=== PATIENT | female | born 2000 | race Two or more races ===

== ENCOUNTER 2019-03-20 19:23 | Emergency (ER) | payer OTHER, MEDICAID ==
[2019-03-20] MEDS ORDERED: hydrOXYzine HCl 50 MG/ML SDV IM ONE (19:51)
[2019-03-20] MEDS ORDERED: Ketorolac 60 MG/2 ML SDV IM ONE (19:51)
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
[2019-03-20 20:51] VITALS: BP 98/73
== END 2019-03-20 20:26 | disposition home or self-care (01) ==
LOC: FB.ED 19:23
DX: R51 Headache (principal); Z88.1 Allergy status to other antibiotic agents
CPT/HCPCS: 81025; 96372; 99284; J1885; J3410

== ENCOUNTER 2019-05-29 18:01 | Emergency (ER) | payer OTHER ==
--- NOTE | 2019-05-29 18:17 | EDM.PDOC ---
ED HPI GENERAL MEDICAL PROBLEM - General Stated Complaint: MIGRAINE Time Seen by Provider: 05/29/19 18:17 Source of Information: Reports: Patient History Limitations: Reports: No Limitations - History of Present Illness INITIAL COMMENTS - FREE TEXT/NARRATIVE: 19-year-old female who reports she's had a daily headache for the past 3 months. The headache seems to come and go. It does seem to be getting worse with time. She has been followed by Dr. Matamoros in regard to this headache and 2 days ago she had an MRI performed of her brain. She does not know the results of this test. 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 She 's had vomiting 2 over the past 2 days. The headache began at 4 PM and has worsened with time. She's had no fevers. She's been able to drink liquids well. The headache has percussively worsened with time. She rates the pain as a 7/10. The pain is a pulsating and sharp pain. There is some photophobia. She also has some neck stiffness but this is consistent with her usual headaches that she has been having. There are no other associated signs or symptoms. There are no other modifying factors. Onset: Today (4 PM, however, she has had a daily headache for the past 3 months) Duration: Getting Worse (, she reports) Location: Reports: Head Quality: Reports: Ache, Other (Pulsating) Severity: Moderate Improves with: Reports: None Worsens with: Reports: None Context: Reports: Other (As above) Associated Symptoms: Reports: Headaches, Nausea/Vomiting Treatments PARTS INTERPRETER: Reports: Other (see below) (Nothing) head Pain Score (Numeric/FACES): 7 - Related Data Allergies Allergy/AdvReac Type Severity Reaction Status Date / Time amoxicillin Allergy Hives Verified 05/29/19 18:15 latex Allergy Hives Verified 05/29/19 18:15 Home Meds: Home Meds NK [No Known Home Meds] 05/29/19 [History] Past Medical History Psychiatric History: Reports: Anxiety, Depression Social & Family History - Family History Family Medical History: Noncontributory - Tobacco Use Tobacco Use Within Last Twelve Months: Other (See Below) (Vapes) Tobacco Use Comment: The patient Vapes - Caffeine Use Caffeine Use: Reports: Energy Drinks, Soda - Alcohol Use Alcohol Use History: No - Recreational Drug Use Recreational Drug Use: No - Living Situation & Occupation Occupation: Employed (Works 2 jobs.) ED ROS GENERAL - Review of Systems Review Of Systems: See Below Constitutional: Reports: Chills (Chills every day for the past 3 months) HEENT: Reports: No Symptoms Respiratory: Reports: No Symptoms Cardiovascular: Reports: No Symptoms GI/Abdominal: Reports: Nausea, Vomiting : Reports: No Symptoms Musculoskeletal: Reports: Neck Pain (Which is a component of her headache.) Skin: Reports: No Symptoms Neurological: Reports: Headache Hematologic/Lymphatic: Reports: No Symptoms Immunologic: Reports: No Symptoms - Physical Exam Exam: See Below Exam Limited By: No Limitations General Appearance: Alert, WD/WN, Mild Distress Eye Exam: Bilateral Eye: EOMI, Normal Inspection, PERRL Ears: Normal External Exam, Hearing Grossly Normal Nose: Normal Inspection, Normal Mucosa, No Blood Throat/Mouth: Normal Inspection, Normal Oropharynx, Normal Voice, No Airway Compromise Head Exam: Atraumatic, Normocephalic Neck: Normal Inspection, Supple, Non-Tender, Full Range of Motion, Other (No meningismus) Respiratory/Chest: No Respiratory Distress Cardiovascular: Normal Peripheral Pulses, Regular Rate, Rhythm, No JVD GI/Abdominal: Normal Bowel Sounds, Soft, Non-Tender, No Mass Neuro Exam (Abbreviated): Alert, Oriented, CN II-XII Intact, Normal Cognition, No Motor/Sensory Deficits Back Exam: Normal Inspection Extremities: Normal Inspection, Normal Range of Motion, Non-Tender, No Pedal Edema, Normal Capillary Refill Skin Exam: Warm, Dry, Intact, Normal Color, No Rash Course - Vital Signs Last Recorded V/S: Last Vital Signs Temp 36.8 C 05/29/19 18:05 Pulse 88 05/29/19 18:05 Resp 15 05/29/19 18:05 BP 103/72 05/29/19 18:05 Pulse Ox 100 05/29/19 18:05 - Orders/Labs/Meds Orders: Active Orders 24 hr Category Date Time Status STREP SCRN A RAPID W CULT CONF [RM] Stat Lab 08/11/19 18:47 Received Labs: Rapid strep was negative. Meds: Medications Discontinued Medications Generic Name Dose Route Start Last Admin Trade Name Kun PRAlba Reason Stop Dose Admin Diphenhydramine HCl 25 mg 05/29/19 18:40 05/29/19 18:58 Benadryl IM 05/29/19 18:41 25 mg ONETIME ONE Administration Ketorolac Tromethamine 60 mg 05/29/19 18:40 05/29/19 19:00 Toradol IM 05/29/19 18:41 60 mg ONETIME ONE Administration Prochlorperazine Edisylate 10 mg 05/29/19 18:40 05/29/19 18:59 Compazine IM 05/29/19 18:41 10 mg ONETIME ONE Administration - Re-Assessments/Exams Free Text/Narrative Re-Assessment/Exam: 05/29/19 18:41: Patient with recurrent headaches for the past 3 months who presents with another headache beginning at 4 PM today that is typical of her previous headaches. She had an MRI performed of her brain 2 days ago and that MRI was read by the radiologist as unremarkable. I relayed these results to the patient. The patient was treated with Toradol 60 mg, Compazine 10 mg and Benadryl 25 mg IM. She did have a sore throat but the rapid strep was negative. She was given a note for no work today and she should follow-up with Dr. Matamoros as scheduled. Departure - Departure Time of Disposition: 19:00 Disposition: Home, Self-Care 01 Condition: Good (Stable) Clinical Impression: Headache syndrome Pharyngitis Qualifiers: Pharyngitis/tonsillitis etiology: unspecified etiology Qualified Code(s): J02.9 - Acute pharyngitis, unspecified - Discharge Information Instructions: General Headache Without Cause, [id number] Referrals: Alpesh Matamoros MD [Primary Care Provider] - Forms: ED Return to Work/School Form Additional Instructions: I am unsure why you or having the recurrent headaches. These could be migraine type headaches. The MRI of your brain done 2 days ago was normal. Your strep screen was negative. You should rest. You should drink plenty of fluids. No work until 05/30/2019. You may take Tylenol and ibuprofen as needed for pain. Follow-up with Dr. Matamoros this coming week. Back to the emergency department for fever, unrelenting vomiting, localized area of weakness or numbness or any other concerning sign or symptom. - My Orders Last 24 Hours: My Active Orders 05/29/19 18:47 STREP SCRN A RAPID W CULT CONF [RM] Stat - Assessment/Plan Last 24 Hours: My Active Orders 05/29/19 18:47 STREP SCRN A RAPID W CULT CONF [RM] Stat
[2019-05-29] MEDS ORDERED: Ketorolac 60 MG/2 ML SDV IM ONE (18:40)
[2019-05-29] MEDS ORDERED: diphenhydrAMINE 50 MG/ML SDV IM ONE (18:40)
[2019-05-29] MEDS ORDERED: Prochlorperazine 10 MG/2 ML SDV IM ONE (18:40)
[2019-05-29 19:35] VITALS: BP 100/61; PULSE 70
== END 2019-05-29 19:27 | disposition home or self-care (01) ==
LOC: FB.ED 18:01
DX: G44.89 Other headache syndrome (principal); J02.9 Acute pharyngitis, unspecified; Z88.0 Allergy status to penicillin; Z91.040 Latex allergy status
CPT/HCPCS: 87081; 87880; 96372; 99283; J0780; J1200; J1885

== ENCOUNTER 2019-10-02 17:45 | Emergency (ER) | payer MEDICAID, OTHER ==
[2019-10-02] MEDS ORDERED: Acetaminophen/HYDROcodone 325-5 MG Tab PO ONE (17:46)
--- NOTE | 2019-10-02 18:17 | EDM.PDOC ---
ED HPI GENERAL MEDICAL PROBLEM - General Chief Complaint: General Stated Complaint: SORETHROAT Time Seen by Provider: 10/02/19 18:00 Source of Information: Reports: Patient History Limitations: Reports: No Limitations - History of Present Illness INITIAL COMMENTS - FREE TEXT/NARRATIVE: pt c/o left lower tooth pain X 3 days, denies swelling, fever chills, or any other associated sx or concerns. 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: Reports: Other (see below) Other 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: Ibuprofen Tooth Pain Score (Numeric/FACES): 7 - Related Data Allergies Allergy/AdvReac Type Severity Reaction Status Date / Time amoxicillin Allergy Hives Verified 10/02/19 17:55 latex Allergy Hives Verified 10/02/19 17:55 Home Meds: Home Meds NK [No Known Home Meds] 05/29/19 [History] Past Medical History - Past Health History Medical/Surgical History: Denies Medical/Surgical History Neurological History: Reports: Migraines Psychiatric History: Reports: Anxiety, Depression Social & Family History - Family History Family Medical History: Noncontributory - Tobacco Use Smoking Status *Q: Never Smoker - Caffeine Use Caffeine Use: Reports: Energy Drinks, Soda - Recreational Drug Use Recreational Drug Use: No - Living Situation & Occupation Occupation: Employed (Works 2 jobs.) ED ROS GENERAL - Review of Systems Review Of Systems: See Below Constitutional: Reports: No Symptoms Respiratory: Reports: No Symptoms Cardiovascular: Reports: No Symptoms GI/Abdominal: Reports: No Symptoms ED EXAM, GENERAL - Physical Exam Exam: See Below Exam Limited By: No Limitations General Appearance: Alert, Mild Distress Eye Exam: Bilateral Eye: Normal Inspection Throat/Mouth: Normal Inspection, Normal Oropharynx, Other (decay and tenderness over left lower molars. ) Head: Atraumatic, Normocephalic Neck: Normal Inspection, Supple, Non-Tender, Limited Range of Motion, Lymphadenopathy (R), Lymphadenopathy (L) Respiratory/Chest: No Respiratory Distress, Lungs Clear Cardiovascular: Normal Peripheral Pulses, Regular Rate, Rhythm, No Murmur GI/Abdominal: Normal Bowel Sounds, Soft, Non-Tender Course - Vital Signs Text/Narrative:: pt has dental infection, clarithromycin X 10 days was prescribed along with 14 tablets hydrocodone, pt to follow with her dentist. Last Recorded V/S: Last Vital Signs Temp 36.6 C 10/02/19 17:49 Pulse 108 H 10/02/19 17:49 Resp 16 10/02/19 17:49 BP 129/83 10/02/19 17:49 Pulse Ox 100 10/02/19 17:49 Departure - Departure Time of Disposition: 18:17 Disposition: Home, Self-Care 01 Clinical Impression: Dental infection - Discharge Information Referrals: Alpesh Matamoros MD [Primary Care Provider] - Sepsis Event Note - Evaluation Sepsis Screening Result: No Definite Risk - Focused Exam Vital Signs: Vital Signs Temp Pulse Resp BP Pulse Ox 10/02/19 17:49 36.6 C 108 H 16 129/83 100 Date Exam was Performed: 10/02/19 Time Exam was Performed: 18:11
[2019-10-02 18:36] VITALS: BP 109/67; PULSE 102
== END 2019-10-02 18:33 | disposition home or self-care (01) ==
LOC: FB.ED 17:45
DX: K04.7 Periapical abscess without sinus (principal); K02.9 Dental caries, unspecified; Z88.0 Allergy status to penicillin; Z91.040 Latex allergy status
CPT/HCPCS: 99283; A9270

== ENCOUNTER 2021-11-12 12:09 | Emergency (ER) | payer SELFPAY ==
[2021-11-12] MEDS ORDERED: Sodium Chloride 0.9% 1,000 ML IV ONE (12:32)
[2021-11-12] MEDS ORDERED: Ondansetron 4 MG/2 ML SDV IVPUSH ONE (12:32)
[2021-11-12] MEDS ORDERED: Morphine 2 MG/ML SYRINGE IVPUSH ONE (12:32)
[2021-11-12] MEDS ORDERED: Sodium Chloride 0.9% 10 ML Syringe FLUSH PRN (12:33)
[2021-11-12] MEDS ORDERED: Ketorolac 30 MG/ML SDV IVPUSH STA (12:54)
[2021-11-12] MEDS ORDERED: Acetaminophen/oxyCODONE 325-5 MG Tab PO STA (13:44)
[2021-11-12] MEDS ORDERED: Iopamidol 755 Mg/ML 75 ML Bottle IV ONE (14:07)
[2021-11-12] MEDS ORDERED: Sodium Chloride 0.9% 1,000 ML IV SCH (15:30)
[2021-11-12 15:37] LABS: CORONAVIRUS COVID-19 NAA POSITIVE (NEGATIVE)
[2021-11-12] MEDS ORDERED: Ciprofloxacin in D5W 400 MG in Premix Bag 1 BAG IV ONE ×2 (15:43)
[2021-11-12] MEDS ORDERED: metroNIDAZOLE/Normal Saline 500 MG in Premix Bag 1 BAG IV STA (15:43)
[2021-11-12] MEDS ORDERED: cefTRIAXone 2 GM Vial IVPUSH STA (15:49)
[2021-11-12 19:07] VITALS: BP 116/78; PULSE 83
== END 2021-11-12 19:30 ==
LOC: FB.ED 12:09
DX: U07.1 COVID-19 (principal); J12.82 Pneumonia due to coronavirus disease 2019; J85.1 Abscess of lung with pneumonia; K65.1 Peritoneal abscess; N39.0 Urinary tract infection, site not specified; Z88.0 Allergy status to penicillin; Z91.040 Latex allergy status; Z72.0 Tobacco use
CPT/HCPCS: 0240U; 36415; 71046; 74176; 74177; 80053; 81001; 81025; 82150; 83690; 83880; 85025; 85379; 87086; 87088; 87186; 96365; 96367; 96375; 99285; A9270; J0696; J0744; J1885; J2270; J2405; J3490; J7030; Q9967

== ENCOUNTER 2025-06-16 17:54 | Emergency (ER) | payer MEDICAID ==
[2025-06-16] MEDS: Ondansetron 4 MG/2 ML SDV IVPUSH ONE (18:22)
[2025-06-16] MEDS: HYDROmorphone 2 MG/ML SDV IVPUSH ONE ×3 (18:22→21:53)
[2025-06-16 18:30] LABS: BASOPHILS ABSOLUTE AUTO 0.0 x10-3/uL (0.0-0.1); BASOPHILS PERCENT AUTO 0.4 % (0.2-1.5); EOSINOPHILS ABSOLUTE AUTO 0.1 x10-3/uL (0.0-0.8); EOSINOPHILS PERCENT AUTO 1.2 % (0.6-8.1); LYMPHOCYTES ABSOLUTE AUTO 1.3 x10-3/uL (1.0-4.4); LYMPHOCYTES PERCENT AUTO 20.0 % (18.4-52.1); MEAN PLATELET VOLUME 8.4 fL (7.1-12.4); MONOCYTES ABSOLUTE AUTO 0.4 x10-3/uL (0.3-1.0); MONOCYTES PERCENT AUTO 5.8 % (4.4-15.7); NEUTROPHILS ABSOLUTE AUTO 4.9 x10-3/uL (1.5-6.3); NEUTROPHILS PERCENT AUTO 72.6 % (30.8-76.2); PLATELET COUNT,PLT 245 x10(3)uL (151-488); RED CELL DISTRIBUTION WIDTH 17.9 % (12.3-16.5); WHITE BLOOD CELL COUNT,WBC 6.7 x10-3/uL (3.0-10.3)
[2025-06-16 18:33] LABS: BLOOD UREA NITROGEN,BUN 7 mg/dL (7-18); CARBON DIOXIDE,CO2 26 mmol/L (21-32); CHLORIDE,CL 104 mmol/L (100-110); CREATININE 0.7 mg/dL (0.55-1.02); EST CRCL DRUG DOSING (CG) 87.48 mL/min; ESTIMATED GFR 122 mL/min (>60); GLUCOSE RANDOM 245 mg/dL (80-116); POTASSIUM,K 3.7 mmol/L (3.5-5.3); SODIUM,NA 139 mmol/L (135-145)
[2025-06-16 18:39] LABS: A/G RATIO 1.0; ALANINE AMINOTRANSFERASE,ALT 17 U/L (12-36); ASPARTATE AMNIOTRANSFERASE,AST 14 IU/L (5-25); BILIRUBIN TOTAL 0.3 mg/dL (0.1-1.3); PROTEIN TOTAL,TP 7.4 g/dL (6.0-8.0)
[2025-06-16 18:42] LABS: LACTIC ACID 1.2 mmol/L (0.4-2.0)
[2025-06-16 18:44] LABS: RED BLOOD CELL COUNT 3.79 x10(6)uL (3.60-5.20)
[2025-06-16 20:11] LABS: GLUCOSE,URINE NORMAL (NORMAL); OCCULT BLOOD,URINE NEGATIVE (NEGATIVE)
[2025-06-16 20:13] LABS: APPEARANCE,URINE CLEAR (CLEAR)
[2025-06-17 02:03] VITALS: BP 110/80; PULSE 82
[2025-06-17] MEDS: Acetaminophen/oxyCODONE 325-5 MG Tab PO ONE (02:19)
== END 2025-06-17 02:30 | disposition home or self-care (01) ==
LOC: FB.ED 17:54
DX: R10.10 Upper abdominal pain, unspecified (principal); F17.200 Nicotine dependence, unspecified, uncomplicated; Z88.0 Allergy status to penicillin; Z91.040 Latex allergy status; Z79.899 Other long term (current) drug therapy; Z90.49 Acquired absence of other specified parts of digestive tract
CPT/HCPCS: 74176; 80053; 81003; 83605; 83690; 85025; 86140; 96361; 96374; 96375; 96376; 99285; A9270; J1171; J1642; J2405; J7030; 99284

== ENCOUNTER 2025-06-19 11:32 | Emergency (ER) | payer MEDICAID ==
[2025-06-19] MEDS ORDERED: Heparin Sodium 10 Units/ML 5 ML Syringe FLUSH PRN (11:48)
[2025-06-19] MEDS ORDERED: Sodium Chloride 0.9% 10 ML Syringe FLUSH PRN (11:49)
[2025-06-19] MEDS: Iopamidol 755 Mg/ML 100 ML Bottle IV SCH (11:57)
[2025-06-19 12:03] LABS: BASOPHILS ABSOLUTE AUTO 0.1 x10-3/uL (0.0-0.1); BASOPHILS PERCENT AUTO 0.7 % (0.2-1.5); EOSINOPHILS ABSOLUTE AUTO 0.1 x10-3/uL (0.0-0.8); EOSINOPHILS PERCENT AUTO 1.0 % (0.6-8.1); LYMPHOCYTES ABSOLUTE AUTO 1.3 x10-3/uL (1.0-4.4); LYMPHOCYTES PERCENT AUTO 17.3 % (18.4-52.1); MEAN PLATELET VOLUME 8.5 fL (7.1-12.4); MONOCYTES ABSOLUTE AUTO 0.3 x10-3/uL (0.3-1.0); MONOCYTES PERCENT AUTO 4.4 % (4.4-15.7); NEUTROPHILS ABSOLUTE AUTO 5.7 x10-3/uL (1.5-6.3); NEUTROPHILS PERCENT AUTO 76.6 % (30.8-76.2); PLATELET COUNT,PLT 284 x10(3)uL (151-488); RED BLOOD CELL COUNT 4.18 x10(6)uL (3.60-5.20); RED CELL DISTRIBUTION WIDTH 17.4 % (12.3-16.5); WHITE BLOOD CELL COUNT,WBC 7.4 x10-3/uL (3.0-10.3)
[2025-06-19 12:10] LABS: BLOOD UREA NITROGEN,BUN 15 mg/dL (7-18); CARBON DIOXIDE,CO2 25 mmol/L (21-32); CHLORIDE,CL 103 mmol/L (100-110); CREATININE 0.8 mg/dL (0.55-1.02); EST CRCL DRUG DOSING (CG) 76.54 mL/min; ESTIMATED GFR 104 mL/min (>60); GLUCOSE RANDOM 158 mg/dL (80-116); POTASSIUM,K 3.8 mmol/L (3.5-5.3); SODIUM,NA 140 mmol/L (135-145)
[2025-06-19 12:15] LABS: A/G RATIO 1.0; ALANINE AMINOTRANSFERASE,ALT 13 U/L (12-36); ASPARTATE AMNIOTRANSFERASE,AST 15 IU/L (5-25); BILIRUBIN TOTAL 0.5 mg/dL (0.1-1.3); PROTEIN TOTAL,TP 8.0 g/dL (6.0-8.0)
[2025-06-19 12:19] LABS: GLUCOSE,URINE NORMAL (NORMAL); OCCULT BLOOD,URINE MODERATE (NEGATIVE)
[2025-06-19 12:20] LABS: APPEARANCE,URINE SLIGHTLY CLOUDY (CLEAR)
[2025-06-19 12:29] LABS: SQUAMOUS EPITHELIAL CELLS,UR MODERATE (NS,R,O)
[2025-06-19 12:31] LABS: AMPHETAMINES SCREEN, URINE NEGATIVE (NEGATIVE); BUPRENORPHINE SCREEN,URINE NEGATIVE (NEGATIVE); METHADONE SCREEN, URINE NEGATIVE (NEGATIVE); METHAMPHETAMINE SCREEN, URINE NEGATIVE (NEGATIVE); OXYCODONE SCREEN,URINE NEGATIVE (NEGATIVE)
[2025-06-19] MEDS: HYDROmorphone 2 MG/ML SDV IVPUSH ONE (13:20)
[2025-06-19] MEDS: Ondansetron 4 MG/2 ML SDV IVPUSH ONE (13:21)
[2025-06-19 13:41] VITALS: BP 133/86; PULSE 99
== END 2025-06-19 13:52 | disposition home or self-care (01) ==
LOC: FB.ED 11:32
DX: R10.10 Upper abdominal pain, unspecified (principal); Z88.0 Allergy status to penicillin; Z88.5 Allergy status to narcotic agent; Z91.040 Latex allergy status
CPT/HCPCS: 74177; 80053; 80307; 81001; 82150; 83605; 83690; 85025; 86140; 96374; 96375; 99285-25; J1171; J2405; Q9967

== ENCOUNTER 2025-06-20 12:12 | Emergency (ER) | payer MEDICAID ==
[2025-06-20 12:56] LABS: BASOPHILS ABSOLUTE AUTO 0.0 x10-3/uL (0.0-0.1); BASOPHILS PERCENT AUTO 0.5 % (0.2-1.5); EOSINOPHILS ABSOLUTE AUTO 0.1 x10-3/uL (0.0-0.8); EOSINOPHILS PERCENT AUTO 1.1 % (0.6-8.1); LYMPHOCYTES ABSOLUTE AUTO 1.1 x10-3/uL (1.0-4.4); LYMPHOCYTES PERCENT AUTO 14.9 % (18.4-52.1); MEAN PLATELET VOLUME 8.8 fL (7.1-12.4); MONOCYTES ABSOLUTE AUTO 0.3 x10-3/uL (0.3-1.0); MONOCYTES PERCENT AUTO 3.8 % (4.4-15.7); NEUTROPHILS ABSOLUTE AUTO 6.1 x10-3/uL (1.5-6.3); NEUTROPHILS PERCENT AUTO 79.7 % (30.8-76.2); PLATELET COUNT,PLT 261 x10(3)uL (151-488); RED BLOOD CELL COUNT 4.03 x10(6)uL (3.60-5.20); RED CELL DISTRIBUTION WIDTH 17.4 % (12.3-16.5); WHITE BLOOD CELL COUNT,WBC 7.7 x10-3/uL (3.0-10.3)
[2025-06-20 12:59] LABS: BLOOD UREA NITROGEN,BUN 14 mg/dL (7-18); CARBON DIOXIDE,CO2 27 mmol/L (21-32); CHLORIDE,CL 103 mmol/L (100-110); CREATININE 0.9 mg/dL (0.55-1.02); EST CRCL DRUG DOSING (CG) 68.04 mL/min; ESTIMATED GFR 90 mL/min (>60); GLUCOSE RANDOM 237 mg/dL (80-116); POTASSIUM,K 4.1 mmol/L (3.5-5.3); SODIUM,NA 139 mmol/L (135-145)
[2025-06-20] MEDS: Sodium Chloride 0.9% 10 ML Syringe FLUSH PRN (13:08)
[2025-06-20 14:29] LABS: APPEARANCE,URINE SLIGHTLY CLOUDY (CLEAR); GLUCOSE,URINE 250 mg/dL (NORMAL); OCCULT BLOOD,URINE MODERATE (NEGATIVE)
[2025-06-20 14:46] LABS: SQUAMOUS EPITHELIAL CELLS,UR FEW (NS,R,O)
[2025-06-20 17:46] VITALS: BP 101/65; PULSE 87
== END 2025-06-20 15:08 | disposition home or self-care (01) ==
LOC: FB.ED 12:12
DX: N20.0 Calculus of kidney (principal); Z88.0 Allergy status to penicillin; Z88.5 Allergy status to narcotic agent; Z88.6 Allergy status to analgesic agent; Z91.040 Latex allergy status; Z79.4 Long term (current) use of insulin; Z79.899 Other long term (current) drug therapy; Z90.49 Acquired absence of other specified parts of digestive tract
CPT/HCPCS: 80048; 81001; 81025; 85025; 99284; J7030

== ENCOUNTER 2025-06-25 14:42 | Emergency (ER) | payer MEDICAID ==
[2025-06-25] MEDS: Acetaminophen/oxyCODONE 325-5 MG Tab PO STA (15:01)
[2025-06-25 15:12] LABS: BASOPHILS ABSOLUTE AUTO 0.0 x10-3/uL (0.0-0.1); BASOPHILS PERCENT AUTO 0.6 % (0.2-1.5); EOSINOPHILS ABSOLUTE AUTO 0.1 x10-3/uL (0.0-0.8); EOSINOPHILS PERCENT AUTO 1.9 % (0.6-8.1); LYMPHOCYTES ABSOLUTE AUTO 1.5 x10-3/uL (1.0-4.4); LYMPHOCYTES PERCENT AUTO 21.5 % (18.4-52.1); MEAN PLATELET VOLUME 8.4 fL (7.1-12.4); MONOCYTES ABSOLUTE AUTO 0.3 x10-3/uL (0.3-1.0); MONOCYTES PERCENT AUTO 4.7 % (4.4-15.7); NEUTROPHILS ABSOLUTE AUTO 5.1 x10-3/uL (1.5-6.3); NEUTROPHILS PERCENT AUTO 71.3 % (30.8-76.2); PLATELET COUNT,PLT 244 x10(3)uL (151-488); RED CELL DISTRIBUTION WIDTH 16.9 % (12.3-16.5); WHITE BLOOD CELL COUNT,WBC 7.1 x10-3/uL (3.0-10.3)
[2025-06-25 15:14] LABS: BLOOD UREA NITROGEN,BUN 11 mg/dL (7-18); CARBON DIOXIDE,CO2 27 mmol/L (21-32); CHLORIDE,CL 102 mmol/L (100-110); CREATININE 0.8 mg/dL (0.55-1.02); EST CRCL DRUG DOSING (CG) 76.54 mL/min; ESTIMATED GFR 104 mL/min (>60); GLUCOSE RANDOM 279 mg/dL (80-116); POTASSIUM,K 4.0 mmol/L (3.5-5.3); SODIUM,NA 138 mmol/L (135-145)
[2025-06-25 15:20] LABS: A/G RATIO 1.0; ALANINE AMINOTRANSFERASE,ALT 14 U/L (12-36); ASPARTATE AMNIOTRANSFERASE,AST 11 IU/L (5-25); BILIRUBIN TOTAL 0.3 mg/dL (0.1-1.3); PROTEIN TOTAL,TP 7.8 g/dL (6.0-8.0); RED BLOOD CELL COUNT 4.04 x10(6)uL (3.60-5.20)
[2025-06-25] MEDS: Heparin Sodium 10 Units/ML 5 ML Syringe FLUSH PRN (16:06)
[2025-06-25 16:08] VITALS: BP 111/78; PULSE 96
== END 2025-06-25 16:17 | disposition home or self-care (01) ==
LOC: FB.ED 14:42
DX: K86.1 Other chronic pancreatitis (principal); F17.210 Nicotine dependence, cigarettes, uncomplicated; Z88.0 Allergy status to penicillin; Z88.8 Allergy status to other drugs, medicaments and biological substances; Z91.040 Latex allergy status; Z88.5 Allergy status to narcotic agent; Z79.4 Long term (current) use of insulin; Z79.899 Other long term (current) drug therapy; Z86.16 Personal history of COVID-19
CPT/HCPCS: 36415; 80053; 83690; 85025; 96360; 99284; A9270; J1642; J7030

== ENCOUNTER 2025-06-28 11:44 | Emergency (ER) | payer MEDICAID ==
[2025-06-28] MEDS ORDERED: Sodium Chloride 0.9% 10 ML Syringe FLUSH PRN (12:24)
[2025-06-28] MEDS ORDERED: Naloxone 0.4 MG/ML SDV IVPUSH PRN (12:25)
[2025-06-28] MEDS: Iopamidol 755 Mg/ML 100 ML Bottle IV SCH (12:47)
[2025-06-28] MEDS: HYDROmorphone 2 MG/ML SDV IVPUSH STA (13:13)
[2025-06-28 14:52] LABS: BASOPHILS ABSOLUTE AUTO 0.0 x10-3/uL (0.0-0.1); BASOPHILS PERCENT AUTO 0.5 % (0.2-1.5); EOSINOPHILS ABSOLUTE AUTO 0.1 x10-3/uL (0.0-0.8); EOSINOPHILS PERCENT AUTO 1.7 % (0.6-8.1); LYMPHOCYTES ABSOLUTE AUTO 1.3 x10-3/uL (1.0-4.4); LYMPHOCYTES PERCENT AUTO 19.1 % (18.4-52.1); MEAN PLATELET VOLUME 8.4 fL (7.1-12.4); MONOCYTES ABSOLUTE AUTO 0.3 x10-3/uL (0.3-1.0); MONOCYTES PERCENT AUTO 4.9 % (4.4-15.7); NEUTROPHILS ABSOLUTE AUTO 5.2 x10-3/uL (1.5-6.3); NEUTROPHILS PERCENT AUTO 73.8 % (30.8-76.2); PLATELET COUNT,PLT 226 x10(3)uL (151-488); RED BLOOD CELL COUNT 3.80 x10(6)uL (3.60-5.20); RED CELL DISTRIBUTION WIDTH 16.4 % (12.3-16.5); WHITE BLOOD CELL COUNT,WBC 7.1 x10-3/uL (3.0-10.3)
[2025-06-28 14:58] LABS: BLOOD UREA NITROGEN,BUN 12 mg/dL (7-18); CARBON DIOXIDE,CO2 25 mmol/L (21-32); CHLORIDE,CL 105 mmol/L (100-110); CREATININE 0.6 mg/dL (0.55-1.02); EST CRCL DRUG DOSING (CG) 102.06 mL/min; ESTIMATED GFR 127 mL/min (>60); GLUCOSE RANDOM 126 mg/dL (80-116); POTASSIUM,K 4.4 mmol/L (3.5-5.3); SODIUM,NA 137 mmol/L (135-145)
[2025-06-28] MEDS: Acetaminophen/HYDROcodone 325-5 MG Tab PO ONE (15:13)
[2025-06-28 15:58] VITALS: BP 115/82; PULSE 98
== END 2025-06-28 15:30 | disposition home or self-care (01) ==
LOC: FB.ED 11:44
DX: M54.50 Low back pain, unspecified (principal); Z88.5 Allergy status to narcotic agent; Z91.040 Latex allergy status; Z79.899 Other long term (current) drug therapy; Z86.16 Personal history of COVID-19; Z90.49 Acquired absence of other specified parts of digestive tract
CPT/HCPCS: 36415; 72193; 80048; 85025; 87070; 87075; 87077; 87186; 87205; 96361; 96374; 99284; 99284-25; A9270-GY; J1171; J7030; Q9967

== ENCOUNTER 2025-06-29 11:58 | Emergency (ER) | payer MEDICAID ==
[2025-06-29] MEDS: Ketorolac 30 MG/ML SDV IM ONE (14:52)
[2025-06-29 15:35] VITALS: BP 116/79; PULSE 104
== END 2025-06-29 15:34 | disposition home or self-care (01) ==
LOC: FB.ED 11:58
DX: T82.838A Hemorrhage due to vascular prosthetic devices, implants and grafts, initial encounter (principal); E11.9 Type 2 diabetes mellitus without complications; Z88.0 Allergy status to penicillin; Z91.040 Latex allergy status; Z88.5 Allergy status to narcotic agent; Z88.8 Allergy status to other drugs, medicaments and biological substances; Z79.899 Other long term (current) drug therapy; Z79.4 Long term (current) use of insulin
CPT/HCPCS: 96372; 99284; J1885

== ENCOUNTER 2025-06-30 14:04 | Emergency (ER) | payer MEDICAID ==
[2025-06-30 14:23] VITALS: BP 109/80; PULSE 114
[2025-06-30] MEDS: Ketorolac 30 MG/ML SDV IM ONE (16:11)
[2025-07-04 23:39] LABS: AMYLASE FLUID SOURCE Abdomen; AMYLASE, BODY FLUID 655 U/L
== END 2025-06-30 16:23 | disposition home or self-care (01) ==
LOC: FB.ED 14:04
DX: T82.838A Hemorrhage due to vascular prosthetic devices, implants and grafts, initial encounter (principal); T81.43XA Infection following a procedure, organ and space surgical site, initial encounter; E11.9 Type 2 diabetes mellitus without complications; Z88.0 Allergy status to penicillin; Z88.5 Allergy status to narcotic agent; Z79.4 Long term (current) use of insulin
CPT/HCPCS: 82150; 96372; 99284; J1885

== ENCOUNTER 2025-07-17 20:42 | Emergency (ER) | payer MEDICAID ==
[2025-07-17 21:31] LABS: BASOPHILS ABSOLUTE AUTO 0.0 x10-3/uL (0.0-0.1); BASOPHILS PERCENT AUTO 0.4 % (0.2-1.5); EOSINOPHILS ABSOLUTE AUTO 0.1 x10-3/uL (0.0-0.8); EOSINOPHILS PERCENT AUTO 1.3 % (0.6-8.1); LYMPHOCYTES ABSOLUTE AUTO 0.7 x10-3/uL (1.0-4.4); LYMPHOCYTES PERCENT AUTO 9.1 % (18.4-52.1); MEAN PLATELET VOLUME 8.7 fL (7.1-12.4); MONOCYTES ABSOLUTE AUTO 0.6 x10-3/uL (0.3-1.0); MONOCYTES PERCENT AUTO 7.8 % (4.4-15.7); NEUTROPHILS ABSOLUTE AUTO 6.6 x10-3/uL (1.5-6.3); NEUTROPHILS PERCENT AUTO 81.4 % (30.8-76.2); PLATELET COUNT,PLT 201 x10(3)uL (151-488); RED BLOOD CELL COUNT 4.10 x10(6)uL (3.60-5.20); RED CELL DISTRIBUTION WIDTH 15.8 % (12.3-16.5); WHITE BLOOD CELL COUNT,WBC 8.1 x10-3/uL (3.0-10.3)
[2025-07-17 21:36] LABS: BLOOD UREA NITROGEN,BUN 8 mg/dL (7-18); CARBON DIOXIDE,CO2 27 mmol/L (21-32); CHLORIDE,CL 101 mmol/L (100-110); CREATININE 0.6 mg/dL (0.55-1.02); EST CRCL DRUG DOSING (CG) 107.22 mL/min; ESTIMATED GFR 127 mL/min (>60); GLUCOSE RANDOM 329 mg/dL (80-116); POTASSIUM,K 4.0 mmol/L (3.5-5.3); SODIUM,NA 135 mmol/L (135-145)
[2025-07-17 21:42] LABS: A/G RATIO 0.9; ALANINE AMINOTRANSFERASE,ALT 115 U/L (12-36); ASPARTATE AMNIOTRANSFERASE,AST 40 IU/L (5-25); BILIRUBIN TOTAL 0.7 mg/dL (0.1-1.3); PROTEIN TOTAL,TP 7.4 g/dL (6.0-8.0)
[2025-07-17] MEDS: LORazepam 2 MG/ML SDV IVPUSH ONE (21:58)
[2025-07-17] MEDS: Ondansetron 4 MG/2 ML SDV IVPUSH ONE (21:58)
[2025-07-18 00:26] VITALS: BP 105/69; PULSE 100
[2025-07-18] MEDS: Acetaminophen/oxyCODONE 325-5 MG Tab PO ONE (00:28)
== END 2025-07-18 00:32 | disposition home or self-care (01) ==
LOC: FB.ED 20:42
DX: R10.30 Lower abdominal pain, unspecified (principal); R11.2 Nausea with vomiting, unspecified; E11.9 Type 2 diabetes mellitus without complications; E86.0 Dehydration; Z91.040 Latex allergy status; Z88.5 Allergy status to narcotic agent; Z88.8 Allergy status to other drugs, medicaments and biological substances; Z79.4 Long term (current) use of insulin; Z79.899 Other long term (current) drug therapy
CPT/HCPCS: 80053; 83605; 83690; 83735; 85025; 86140; 93005; 93010; 96361; 96374; 96375; 99284; A9270; J1630; J2060; J2405; J7030

== ENCOUNTER 2025-08-01 14:54 | Emergency (ER) | payer MEDICAID ==
[2025-08-01] MEDS ORDERED: Acetaminophen/HYDROcodone 325-5 MG Tab PO ONE (14:55)
[2025-08-01 15:09] VITALS: BP 115/93; PULSE 115
[2025-08-01 15:46] LABS: BASOPHILS ABSOLUTE AUTO 0.0 x10-3/uL (0.0-0.1); BASOPHILS PERCENT AUTO 0.3 % (0.2-1.5); EOSINOPHILS ABSOLUTE AUTO 0.3 x10-3/uL (0.0-0.8); EOSINOPHILS PERCENT AUTO 3.6 % (0.6-8.1); LYMPHOCYTES ABSOLUTE AUTO 1.2 x10-3/uL (1.0-4.4); LYMPHOCYTES PERCENT AUTO 17.1 % (18.4-52.1); MEAN PLATELET VOLUME 9.0 fL (7.1-12.4); MONOCYTES ABSOLUTE AUTO 0.4 x10-3/uL (0.3-1.0); MONOCYTES PERCENT AUTO 6.1 % (4.4-15.7); NEUTROPHILS ABSOLUTE AUTO 5.2 x10-3/uL (1.5-6.3); NEUTROPHILS PERCENT AUTO 73.0 % (30.8-76.2); PLATELET COUNT,PLT 260 x10(3)uL (151-488); RED BLOOD CELL COUNT 4.33 x10(6)uL (3.60-5.20); RED CELL DISTRIBUTION WIDTH 15.4 % (12.3-16.5); WHITE BLOOD CELL COUNT,WBC 7.1 x10-3/uL (3.0-10.3)
[2025-08-01 15:49] LABS: BLOOD UREA NITROGEN,BUN 11 mg/dL (7-18); CARBON DIOXIDE,CO2 28 mmol/L (21-32); CHLORIDE,CL 96 mmol/L (100-110); CREATININE 0.8 mg/dL (0.55-1.02); ESTIMATED GFR 104 mL/min (>60); GLUCOSE RANDOM 388 mg/dL (80-116); POTASSIUM,K 4.2 mmol/L (3.5-5.3); SODIUM,NA 132 mmol/L (135-145)
[2025-08-01 15:55] LABS: A/G RATIO 0.8; ALANINE AMINOTRANSFERASE,ALT 19 U/L (12-36); ASPARTATE AMNIOTRANSFERASE,AST 13 IU/L (5-25); BILIRUBIN TOTAL 0.6 mg/dL (0.1-1.3); PROTEIN TOTAL,TP 8.2 g/dL (6.0-8.0)
[2025-08-01] MEDS: fentaNYL 100 MCG/2 ML SDV IM ONE (15:57)
[2025-08-01] MEDS ORDERED: Sodium Chloride 0.9% 10 ML Syringe FLUSH PRN (16:16)
[2025-08-01] MEDS: Ketorolac 30 MG/ML SDV IVPUSH ONE (16:34)
[2025-08-01] MEDS: Ketorolac 30 MG/ML SDV IM ONE (16:59)
[2025-08-01] MEDS: Magnesium Sulfate 2 GM/50 mL 2 GM in Premix Bag 1 BAG IV ONE (17:12)
[2025-08-01] MEDS ORDERED: 50% Dextrose in Water 50 ML Syringe IVPUSH PRN (18:07)
[2025-08-01] MEDS: Insulin Regular, Human 100 Units/ML 10 ML Vial SUBCUT ONE (18:24)
== END 2025-08-01 19:40 | disposition home or self-care (01) ==
LOC: FB.ED 14:54
DX: K86.1 Other chronic pancreatitis (principal); G89.29 Other chronic pain; E86.0 Dehydration; R11.2 Nausea with vomiting, unspecified; E11.9 Type 2 diabetes mellitus without complications; R79.89 Other specified abnormal findings of blood chemistry; Z88.0 Allergy status to penicillin; Z91.040 Latex allergy status; Z88.5 Allergy status to narcotic agent; Z79.4 Long term (current) use of insulin
CPT/HCPCS: 36415; 80053; 82947; 83605; 83690; 83735; 85025; 86140; 96365; 96367; 96372; 96375; 99284-25; A9270-GY; J1885; J2550; J3010; J3475; J7030

== ENCOUNTER 2025-08-06 15:15 | Emergency (ER) | payer MEDICAID ==
[2025-08-06 15:47] LABS: GLUCOSE,URINE >1000 mg/dL (NORMAL); OCCULT BLOOD,URINE NEGATIVE (NEGATIVE)
[2025-08-06 15:49] LABS: APPEARANCE,URINE CLEAR (CLEAR)
[2025-08-06 16:23] LABS: BASOPHILS ABSOLUTE AUTO 0.1 x10-3/uL (0.0-0.1); BASOPHILS PERCENT AUTO 0.7 % (0.2-1.5); EOSINOPHILS ABSOLUTE AUTO 0.2 x10-3/uL (0.0-0.8); EOSINOPHILS PERCENT AUTO 2.2 % (0.6-8.1); LYMPHOCYTES ABSOLUTE AUTO 1.5 x10-3/uL (1.0-4.4); LYMPHOCYTES PERCENT AUTO 18.9 % (18.4-52.1); MEAN PLATELET VOLUME 8.8 fL (7.1-12.4); MONOCYTES ABSOLUTE AUTO 0.3 x10-3/uL (0.3-1.0); MONOCYTES PERCENT AUTO 4.5 % (4.4-15.7); NEUTROPHILS ABSOLUTE AUTO 5.8 x10-3/uL (1.5-6.3); NEUTROPHILS PERCENT AUTO 73.7 % (30.8-76.2); PLATELET COUNT,PLT 322 x10(3)uL (151-488); RED BLOOD CELL COUNT 4.76 x10(6)uL (3.60-5.20); RED CELL DISTRIBUTION WIDTH 15.1 % (12.3-16.5); WHITE BLOOD CELL COUNT,WBC 7.8 x10-3/uL (3.0-10.3)
[2025-08-06 16:39] LABS: POTASSIUM,K 5.0 mmol/L (3.5-5.3); SODIUM,NA 129 mmol/L (135-145)
[2025-08-06 16:40] LABS: BLOOD UREA NITROGEN,BUN 16 mg/dL (7-18); CARBON DIOXIDE,CO2 27 mmol/L (21-32); CHLORIDE,CL 93 mmol/L (100-110); CREATININE 1.0 mg/dL (0.55-1.02); EST CRCL DRUG DOSING (CG) 64.33 mL/min; ESTIMATED GFR 80 mL/min (>60); GLUCOSE RANDOM 682 mg/dL (80-116)
[2025-08-06 16:41] LABS: A/G RATIO 0.8; ALANINE AMINOTRANSFERASE,ALT 18 U/L (12-36); ASPARTATE AMNIOTRANSFERASE,AST 10 IU/L (5-25); BILIRUBIN TOTAL 0.6 mg/dL (0.1-1.3); PROTEIN TOTAL,TP 8.4 g/dL (6.0-8.0)
[2025-08-06 17:14] VITALS: BP 110/90; PULSE 118
== END 2025-08-06 17:12 | disposition home or self-care (01) ==
LOC: FB.ED 15:15
DX: E11.65 Type 2 diabetes mellitus with hyperglycemia (principal); K86.1 Other chronic pancreatitis; Z79.4 Long term (current) use of insulin
CPT/HCPCS: 36415; 80053; 81003; 81025; 82947; 83690; 83735; 85025; 86140; 99283

== ENCOUNTER 2025-08-09 14:41 | Emergency (ER) | payer MEDICAID ==
[2025-08-09] MEDS ORDERED: Sodium Chloride 0.9% 10 ML Syringe FLUSH PRN (14:56)
[2025-08-09 15:05] VITALS: BP 113/74; PULSE 115
[2025-08-09 15:21] LABS: BASOPHILS ABSOLUTE AUTO 0.1 x10-3/uL (0.0-0.1); BASOPHILS PERCENT AUTO 0.7 % (0.2-1.5); EOSINOPHILS ABSOLUTE AUTO 0.3 x10-3/uL (0.0-0.8); EOSINOPHILS PERCENT AUTO 3.7 % (0.6-8.1); LYMPHOCYTES ABSOLUTE AUTO 1.4 x10-3/uL (1.0-4.4); LYMPHOCYTES PERCENT AUTO 18.9 % (18.4-52.1); MEAN PLATELET VOLUME 9.0 fL (7.1-12.4); MONOCYTES ABSOLUTE AUTO 0.4 x10-3/uL (0.3-1.0); MONOCYTES PERCENT AUTO 4.9 % (4.4-15.7); NEUTROPHILS ABSOLUTE AUTO 5.4 x10-3/uL (1.5-6.3); NEUTROPHILS PERCENT AUTO 71.8 % (30.8-76.2); PLATELET COUNT,PLT 236 x10(3)uL (151-488); RED BLOOD CELL COUNT 4.62 x10(6)uL (3.60-5.20); RED CELL DISTRIBUTION WIDTH 15.4 % (12.3-16.5); WHITE BLOOD CELL COUNT,WBC 7.5 x10-3/uL (3.0-10.3)
[2025-08-09 15:24] LABS: BASE EXCESS VENOUS,POC -1 mmol/L (-2 - 3+); PCO2 VENOUS,POC 34 mmHg (41-51); PH VENOUS,POC 7.44 pH Units (7.32-7.43)
[2025-08-09 15:32] LABS: BLOOD UREA NITROGEN,BUN 11 mg/dL (7-18); CARBON DIOXIDE,CO2 24 mmol/L (21-32); CHLORIDE,CL 93 mmol/L (100-110); CREATININE 1.0 mg/dL (0.55-1.02); ESTIMATED GFR 80 mL/min (>60); POTASSIUM,K 3.8 mmol/L (3.5-5.3); SODIUM,NA 127 mmol/L (135-145)
[2025-08-09 15:37] LABS: A/G RATIO 0.8; ALANINE AMINOTRANSFERASE,ALT 14 U/L (12-36); ASPARTATE AMNIOTRANSFERASE,AST 12 IU/L (5-25); BILIRUBIN TOTAL 0.5 mg/dL (0.1-1.3); GLUCOSE RANDOM 660 mg/dL (80-116); PROTEIN TOTAL,TP 8.4 g/dL (6.0-8.0)
[2025-08-09] MEDS ORDERED: 50% Dextrose in Water 50 ML Syringe IVPUSH PRN (15:40)
[2025-08-09] MEDS: Ondansetron 4 MG/2 ML SDV IVPUSH ONE (15:58)
[2025-08-09] MEDS: Insulin Regular, Human 100 Units/ML 10 ML Vial IV ONE (15:59)
[2025-08-09] MEDS: Ketorolac 30 MG/ML SDV IVPUSH ONE (16:02)
== END 2025-08-09 17:19 | disposition home or self-care (01) ==
LOC: FB.ED 14:41
DX: K86.1 Other chronic pancreatitis (principal); E11.9 Type 2 diabetes mellitus without complications; Z88.0 Allergy status to penicillin; Z88.5 Allergy status to narcotic agent; Z91.040 Latex allergy status; Z79.4 Long term (current) use of insulin; Z79.899 Other long term (current) drug therapy
CPT/HCPCS: 36415; 80053; 82150; 82947; 83605; 83690; 85025; 86140; 96361; 96374; 96375; 99284; A9270; J1885; J2405; J7030

== ENCOUNTER 2025-09-08 11:25 | Emergency (ER) | payer MEDICAID ==
[2025-09-08 11:40] VITALS: BP 119/83; PULSE 118
[2025-09-08] MEDS ORDERED: Sodium Chloride 0.9% 10 ML Syringe FLUSH PRN (11:49)
[2025-09-08] MEDS ORDERED: Naloxone 0.4 MG/ML SDV IVPUSH PRN (11:51)
[2025-09-08] MEDS: Ondansetron 4 MG/2 ML SDV IVPUSH ONE (12:24)
[2025-09-08] MEDS: Ketorolac 30 MG/ML SDV IVPUSH ONE (12:26)
[2025-09-08 12:29] LABS: BASOPHILS ABSOLUTE AUTO 0.0 x10-3/uL (0.0-0.1); BASOPHILS PERCENT AUTO 0.3 % (0.2-1.5); EOSINOPHILS ABSOLUTE AUTO 0.3 x10-3/uL (0.0-0.8); EOSINOPHILS PERCENT AUTO 5.1 % (0.6-8.1); LYMPHOCYTES ABSOLUTE AUTO 1.4 x10-3/uL (1.0-4.4); LYMPHOCYTES PERCENT AUTO 26.7 % (18.4-52.1); MEAN PLATELET VOLUME 9.6 fL (7.1-12.4); MONOCYTES ABSOLUTE AUTO 0.4 x10-3/uL (0.3-1.0); MONOCYTES PERCENT AUTO 6.7 % (4.4-15.7); NEUTROPHILS ABSOLUTE AUTO 3.2 x10-3/uL (1.5-6.3); NEUTROPHILS PERCENT AUTO 61.2 % (30.8-76.2); PLATELET COUNT,PLT 261 x10(3)uL (151-488); RED BLOOD CELL COUNT 4.53 x10(6)uL (3.60-5.20); RED CELL DISTRIBUTION WIDTH 16.6 % (12.3-16.5); WHITE BLOOD CELL COUNT,WBC 5.3 x10-3/uL (3.0-10.3)
[2025-09-08 12:33] LABS: BLOOD UREA NITROGEN,BUN 8 mg/dL (7-18); CARBON DIOXIDE,CO2 24 mmol/L (21-32); CHLORIDE,CL 98 mmol/L (100-110); CREATININE 0.7 mg/dL (0.55-1.02); EST CRCL DRUG DOSING (CG) 96.32 mL/min; ESTIMATED GFR 122 mL/min (>60); GLUCOSE RANDOM 387 mg/dL (80-116); POTASSIUM,K 4.1 mmol/L (3.5-5.3); SODIUM,NA 134 mmol/L (135-145)
[2025-09-08] MEDS: HYDROmorphone 2 MG/ML SDV IVPUSH ONE (12:34)
[2025-09-08 12:39] LABS: A/G RATIO 0.8; ALANINE AMINOTRANSFERASE,ALT 34 U/L (12-36); ASPARTATE AMNIOTRANSFERASE,AST 13 IU/L (5-25); BILIRUBIN TOTAL 0.7 mg/dL (0.1-1.3); PROTEIN TOTAL,TP 8.1 g/dL (6.0-8.0)
[2025-09-08 13:54] LABS: GLUCOSE,URINE >1000 mg/dL (NORMAL); OCCULT BLOOD,URINE NEGATIVE (NEGATIVE)
[2025-09-08 13:55] LABS: APPEARANCE,URINE CLEAR (CLEAR)
[2025-09-08] MEDS: HYDROmorphone 2 MG/ML SDV IVPUSH STA (14:08)
[2025-09-08] MEDS: Iopamidol 755 Mg/ML 100 ML Bottle IV SCH (14:25)
== END 2025-09-08 16:13 | disposition home or self-care (01) ==
LOC: FB.ED 11:25
DX: K86.1 Other chronic pancreatitis (principal); E11.9 Type 2 diabetes mellitus without complications; Z88.0 Allergy status to penicillin; Z91.040 Latex allergy status; Z88.5 Allergy status to narcotic agent; Z79.899 Other long term (current) drug therapy; Z79.4 Long term (current) use of insulin
CPT/HCPCS: 36415; 74177; 80053; 81003; 83690; 85025; 96361; 96374; 96375; 96376; 99284; J1171; J2405; J7030; Q9967

== ENCOUNTER 2025-09-18 18:04 | Emergency (ER) | payer MEDICAID ==
[2025-09-18 18:32] VITALS: BP 131/77; PULSE 116
[2025-09-18 19:30] LABS: BASOPHILS ABSOLUTE AUTO 0.0 x10-3/uL (0.0-0.1); BASOPHILS PERCENT AUTO 0.7 % (0.2-1.5); EOSINOPHILS ABSOLUTE AUTO 0.1 x10-3/uL (0.0-0.8); EOSINOPHILS PERCENT AUTO 1.9 % (0.6-8.1); LYMPHOCYTES ABSOLUTE AUTO 0.9 x10-3/uL (1.0-4.4); LYMPHOCYTES PERCENT AUTO 20.0 % (18.4-52.1); MEAN PLATELET VOLUME 8.4 fL (7.1-12.4); MONOCYTES ABSOLUTE AUTO 0.2 x10-3/uL (0.3-1.0); MONOCYTES PERCENT AUTO 5.2 % (4.4-15.7); NEUTROPHILS ABSOLUTE AUTO 3.2 x10-3/uL (1.5-6.3); NEUTROPHILS PERCENT AUTO 72.2 % (30.8-76.2); PLATELET COUNT,PLT 224 x10(3)uL (151-488); RED BLOOD CELL COUNT 4.24 x10(6)uL (3.60-5.20); RED CELL DISTRIBUTION WIDTH 16.3 % (12.3-16.5); WHITE BLOOD CELL COUNT,WBC 4.4 x10-3/uL (3.0-10.3)
[2025-09-18 19:34] LABS: BLOOD UREA NITROGEN,BUN 5 mg/dL (7-18); CARBON DIOXIDE,CO2 24 mmol/L (21-32); CHLORIDE,CL 100 mmol/L (100-110); CREATININE 0.6 mg/dL (0.55-1.02); EST CRCL DRUG DOSING (CG) 112.38 mL/min; ESTIMATED GFR 127 mL/min (>60); GLUCOSE RANDOM 326 mg/dL (80-116); POTASSIUM,K 3.7 mmol/L (3.5-5.3); SODIUM,NA 137 mmol/L (135-145)
[2025-09-18 19:39] LABS: A/G RATIO 0.9; ALANINE AMINOTRANSFERASE,ALT 29 U/L (12-36); ASPARTATE AMNIOTRANSFERASE,AST 13 IU/L (5-25); BILIRUBIN TOTAL 0.6 mg/dL (0.1-1.3); PROTEIN TOTAL,TP 7.7 g/dL (6.0-8.0)
[2025-09-18 19:48] LABS: GLUCOSE,URINE >1000 mg/dL (NORMAL); OCCULT BLOOD,URINE NEGATIVE (NEGATIVE)
[2025-09-18 19:49] LABS: APPEARANCE,URINE SLIGHTLY CLOUDY (CLEAR)
[2025-09-18] MEDS ORDERED: Sodium Chloride 0.9% 10 ML Syringe FLUSH PRN (20:07)
[2025-09-18] MEDS: Iopamidol 755 Mg/ML 100 ML Bottle IV ONE (20:21)
== END 2025-09-18 21:10 | disposition home or self-care (01) ==
LOC: FB.ED 18:04
DX: R10.9 Unspecified abdominal pain (principal); E11.9 Type 2 diabetes mellitus without complications; Z79.899 Other long term (current) drug therapy; Z79.4 Long term (current) use of insulin; Z88.0 Allergy status to penicillin; Z88.5 Allergy status to narcotic agent; Z91.040 Latex allergy status
CPT/HCPCS: 36415; 74177; 80053; 81003; 82150; 83605; 83690; 85025; 86140; 99284; Q9967